=== PATIENT | female | born 1995 | race Caucasian/White ===

== ENCOUNTER 2016-11-02 15:40 | Emergency (ER) | payer OTHER ==
[~2016-11-02] VITALS: Ht 157.5 cm; Wt 52.6 kg
[2016-11-02] MEDS ORDERED: BIRTH CONTROL (16:16)
[2016-11-02] MEDS ORDERED: GLYCOPYRROLATE 2 MG (16:16)
[2016-11-02] MEDS ORDERED: OMEPRAZOLE 20MG CAPSULES (16:16)
--- NOTE | 2016-11-02 16:22 | ED Lower Extremity ---
General Chief Complaint: Lower Extremity Stated Complaint: R FOOT PAIN/POSSIBLE BROKEN FOOT Nursing Triage Note: PT CO OF R FOOT PAIN, HIT FOOT R ON BED FRAME Nursing Sepsis Screen: No Definite Risk Source: patient Exam Limitations: no limitations History of Present Illness Time seen by provider: 16:22 Initial Comments 21-year-old female patient presents to the emergency department with complaints of right foot pain after hitting her foot on the wheel to the bed frame. Reports swelling, bruising, and tenderness. Location Injury Occurred: home Onset: this afternoon Pain/Injury Location: right foot Method of Injury: direct blow Modifying Factors: Improves With Immobilization, Worse With Movement Allergies and Home Medications Allergies Coded Allergies: No Known Drug Allergies (Unverified , 11/02/16) Home Medications [ Control] , (Reported) [Glycopyrrolate 2MG Tablets] , (Reported) [Omeprazole 20MG Capsules] , (Reported) Constitutional: no symptoms reported Musculoskeletal: see HPI, joint pain, joint swelling Skin: see HPI, change in color (ecchymosis right foot) Psychiatric/Neurological: Denies Numbness, Denies Paresthesia, Denies Tingling , Denies Weakness All Other Systems Reviewed Negative Unless Noted: Yes (Negative excepted noted.) Past Nwmicpb-Cgbjtw-Ifeeuy Hx Patient Social History Alcohol Use: Occasionally Uses Recreational Drug Use: Yes (POT) Smoking Status: Never a Smoker Recent Foreign Travel: No Contact w/Someone Who Travel: No Recent Infectious Disease Expo: No Recent Hopitalizations: No Immunizations Up To Date Tetanus Booster (TDap): Less than 5yrs Respiratory Hx Respiratory Disorders: No Cardiovascular Hx Cardiac Disorders: No Neurological Hx Neurological Disorders: No Gastrointestinal Gastrointestinal Disorders: Gastroesophageal Reflux Musculoskeletal Hx Musculoskeletal Disorders: No Reviewed Nursing Assessment Reviewed/Agree w Nursing PMH: Yes Family Medical History Significant Family History: No Pertinent Family Hx Physical Exam Vital Signs Vital Sign - Last 12Hours 11/02/16 16:00 Temp 97.2 Pulse 85 Resp 18 B/P (MAP) 139/89 Pulse Ox 98 Capillary Refill : Less Than 3 Seconds General Appearance: WD/WN, no apparent distress Cardiovascular: normal peripheral pulses, no edema Legs: bilateral leg non-tender, bilateral leg normal inspection, bilateral leg normal range of motion, bilateral leg no evidence of injury Knees: bilateral knee non-tender, bilateral knee normal inspection, bilateral knee normal range of motion, bilateral knee no evidence of injury Ankles: bilateral ankle non-tender, bilateral ankle normal inspection, bilateral ankle normal range of motion, bilateral ankle no evidence of injury Feet: left foot non-tender, left foot normal inspection, left foot normal range of motion, left foot no evidence of injury, right foot abrasions/ lacerations (abrasion overlying the distal fourth metatarsal into the webspace between the third and fourth toes.), right foot bone tenderness (distal fourth metatarsal and toe), right foot ecchymosis (distal fourth metatarsal and toe), right foot limited range of motion (right fourth toe), right foot pain, right foot soft tissue tenderness (distal fourth metatarsal and second through fourth toes), right foot swelling (distal fourth metatarsal and toe) Neurologic/Tendon: normal sensation, normal motor functions, normal tendon functions, responds to pain, no evidence tendon injury Neurologic/Psychiatric: no motor/sensory deficits Skin: normal color, warm/dry, ecchymosis (right distal fourth metatarsal), other (abrasion overlying the right distal fourth metatarsal) Progress/Results/Core Measures Results/Orders My Orders Orders - DEBBIE RICHARD Foot, Right, 3 View (11/02/16 15:58) Ibuprofen Tablet (Motrin Tablet) (11/02/16 17:00) Vital Signs/I&O Vital Sign - Last 12Hours 11/02/16 11/02/16 16:00 17:30 Temp 97.2 97.2 Pulse 85 85 Resp 18 18 B/P (MAP) 139/89 Pulse Ox 98 98 Blood Pressure Mean: 106 Diagnostic Imaging Diagonstic Imaging: Xray Plain Films/CT/US/NM/MRI: other Comments FINDINGS: There is no fracture, dislocation or acute articular incongruity. In particular, the fourth phalanges and its a metatarsal appear unremarkable. IMPRESSION: No fracture or acute abnormality. Dictated on workstation # [id number] Reviewed: Reviewed by Me (radiology report reviewed by me) Departure Communication Progress Notes Diagnostic findings discussed with the patient. Patient's foot wrapped with a 3 inch Damien wrap. Proceed with discharge to home. Impression Impression: Primary Impression: Contusion of foot Qualified Codes: S90.31XA - Contusion of right foot, initial encounter Additional Impression: Abrasion of right foot Qualified Codes: S90.811A - Abrasion, right foot, initial encounter Disposition: HOME, SELF-CARE Condition: Improved Departure-Patient Inst. Decision time for Depature: 17:05 Referrals: NO,LOCAL PHYSICIAN (PCP/Family) Primary Care Physician Patient Instructions: Contusion (DC) Add. Discharge Instructions: All discharge instructions reviewed with patient and/or family. Voiced understanding. Tylenol extra strength [id number] as directed for pain. Ibuprofen 800 mg by mouth every 8 hours as needed for pain. Ice pack for 20 minute intervals as needed for 2-3 days, then heating pad or pack if needed. Damien wrap as instructed. Shower with antibacterial soap. Follow-up with [facility] if no improvement in symptoms in 7-10 days. Return to the emergency department for worsened symptoms or any other concerns. DEBBIE RICHARD Nov 02, 2016 4:22 pm
--- NOTE | 2016-11-02 16:40 | Diagnostic Imaging Report ---
INDICATION: Tripped, fourth digit pain. EXAMINATION: Three views of the right foot. FINDINGS: There is no fracture, dislocation or acute articular incongruity. In particular, the fourth phalanges and its a metatarsal appear unremarkable. IMPRESSION: No fracture or acute abnormality. Dictated by: Dictated on workstation # [id number]
[2016-11-02] MEDS ORDERED: IBUPROFEN 800 MG (MOTRIN) TAB PO STA (17:00)
[2016-11-02 17:30] VITALS: BP 139/89
== END 2016-11-02 17:30 | disposition home or self-care (01) ==
LOC: ER 15:43
DX: S90.31XA Contusion of right foot, initial encounter (principal); K21.9 Gastro-esophageal reflux disease without esophagitis; F12.10 Cannabis abuse, uncomplicated; W22.09XA Striking against other stationary object, initial encounter
CPT/HCPCS: 73630; 99283